=== PATIENT | male | born 1990 | race Hispanic/Latino ===

== ENCOUNTER 2016-08-26 18:36 | Emergency (ER) | payer SELFPAY ==
--- NOTE | 2016-08-26 21:18 | Emergency Department Report ---
- General Chief complaint: Skin Rash Stated complaint: POISON GENTRY/ALLERGIC REACTION Time Seen by Provider: 08/26/16 21:12 Source: patient Mode of arrival: Ambulatory Limitations: No Limitations - History of Present Illness Initial comments: 25-year-old male past medical history none presents with complaint of itchy rash to arms or legs and flank. Patient states that he was gardening with a friend 4 days ago and was exposed to poison gentry, developed inflammatory lesions on arms and legs and left flank. Patient was treated at a hospital in [facility]. Patient is currently traveling to meet family members but is currently undomiciled. Is awake alert and oriented 3. States that he has not been able to fill prescriptions for hydroxyzine and prednisone. Has been taking Benadryl with minimal relief of itching. Patient also states that he is currently taking Bactrim and Keflex for small area of cellulitis due to excoriated skin. Patient states his tetanus is up-to-date is awake alert and oriented 3 no signs or reports of respiratory distress. MD complaint: rash, lesion Onset/Timin -: days(s) Tetanus Up to Date: yes Location: LUE, RUE, LLE, RLE Severity: moderate Severity scale (0 -10): 6 Quality: other (itching) Consistency: constant Worsens with: none Context: recent illness (poison gentry allergic reaction on skin and small area of cellulitis) Associated symptoms: denies other symptoms Treatments Prior to Arrival: Benadryl - Related Data Home Medications Medication Instructions Recorded Confirmed Last Taken Prednisone 60 mg PO DAILY 08/26/16 08/26/16 Unknown hydrOXYZINE PAMOATE 25 mg PO QID 08/26/16 08/26/16 Unknown Previous Rx's Medication Instructions Recorded Last Taken Type Pramoxine HCl/Calamine [Calamine 177 ml TP QDAY #1 lotion 08/26/16 Unknown Rx Medicated Lotion] Allergies Allergy/AdvReac Type Severity Reaction Status Date / Time poison gentry extract Allergy Rash Verified 08/26/16 19:27 Abscess Boil HPI - HPI Chief Complaint: Skin Rash Stated Complaint: POISON GENTRY/ALLERGIC REACTION Time Seen by Provider: 08/26/16 21:12 Home Medications: Home Medications Medication Instructions Recorded Confirmed Last Taken Prednisone 60 mg PO DAILY 08/26/16 08/26/16 Unknown hydrOXYZINE PAMOATE 25 mg PO QID 08/26/16 08/26/16 Unknown Previous Rx's Medication Instructions Recorded Last Taken Type Pramoxine HCl/Calamine [Calamine 177 ml TP QDAY #1 lotion 08/26/16 Unknown Rx Medicated Lotion] Allergies/Adverse Reactions: Allergies Allergy/AdvReac Type Severity Reaction Status Date / Time poison gentry extract Allergy Rash Verified 08/26/16 19:27 ED Review of Systems ROS: Stated complaint: POISON GENTRY/ALLERGIC REACTION Other details as noted in HPI Constitutional: denies: chills, fever Eyes: denies: eye pain, eye discharge, vision change ENT: denies: ear pain, throat pain Respiratory: denies: cough, shortness of breath, wheezing Cardiovascular: denies: chest pain, palpitations Endocrine: no symptoms reported Gastrointestinal: denies: abdominal pain, nausea, diarrhea Genitourinary: denies: urgency, dysuria Musculoskeletal: denies: back pain, joint swelling, arthralgia Skin: as per HPI, rash, lesions (multiple excoriations) Neurological: denies: headache, weakness, paresthesias Psychiatric: denies: anxiety, depression Hematological/Lymphatic: denies: easy bleeding, easy bruising ED Past Medical Hx - Past Medical History Previous Medical History?: No - Surgical History Past Surgical History?: No - Social History Smoking Status: Current Every Day Smoker Substance Use Type: None - Medications Home Medications: Home Medications Medication Instructions Recorded Confirmed Last Taken Type Pramoxine HCl/Calamine [Calamine 177 ml TP QDAY #1 lotion 08/26/16 Unknown Rx Medicated Lotion] Prednisone 60 mg PO DAILY 08/26/16 08/26/16 Unknown History hydrOXYZINE PAMOATE 25 mg PO QID 08/26/16 08/26/16 Unknown History ED Physical Exam - General Limitations: No Limitations General appearance: alert, in no apparent distress - Head Head exam: Present: atraumatic, normocephalic - Eye Eye exam: Present: normal appearance, PERRL, EOMI - ENT ENT exam: Present: mucous membranes moist - Neck Neck exam: Present: normal inspection - Respiratory Respiratory exam: Present: normal lung sounds bilaterally. Absent: respiratory distress - Cardiovascular Cardiovascular Exam: Present: regular rate, normal rhythm. Absent: systolic murmur, diastolic murmur, rubs, gallop - GI/Abdominal GI/Abdominal exam: Present: soft, normal bowel sounds - Rectal Rectal exam: Present: deferred - Extremities Exam Extremities exam: Present: normal inspection - Back Exam Back exam: Present: normal inspection, full ROM - Neurological Exam Neurological exam: Present: alert, oriented X3, CN II-XII intact, normal gait - Psychiatric Psychiatric exam: Present: normal affect, normal mood - Skin Skin exam: Present: warm, dry, intact, normal color, rash (rash associated with poison gentry exposure), urticaria (hives-liek lesions on arms and legs), other ( multiples excoriations of arms and legs) ED Course Vital Signs 08/26/16 19:18 Temperature 97.6 F Pulse Rate 84 Respiratory 16 Rate Blood Pressure 116/59 Blood Pressure 116/59 [Left] O2 Sat by Pulse 100 Oximetry ED Medical Decision Making - Medical Decision Making A/P: Allergic reaction skin, poison gentry exposure 1-patient given dose of IV Benadryl and Solu-Medrol, Pepcid and some IV fluids while in ED. Patient experienced significant relief of itching sensation 2-patient has scripts for short course prednisone and hydroxyzine. Patient states he does not currently have money to buy medicines I provided patient with several discount cards and patient is making arrangement with family members to buy medicines tomorrow. 3-I recommend the patient use calamine lotion to allergic lesions where he was exposed to poison gentry 4-patient given primary care referral 5- no clinical signs of angioedema or anaphylaxis at this time 6-patient already on course of Bactrim and Keflex for small cellulitic patch underneath the left axilla. Patient states it has been getting better. Denies any fever or chills. Critical care attestation.: If time is entered above; I have spent that time in minutes in the direct care of this critically ill patient, excluding procedure time. ED Disposition Clinical Impression: Poison gentry dermatitis Disposition: DC-01 TO HOME OR SELFCARE Is pt being admited?: No Does the pt Need Aspirin: No Condition: Stable Instructions: Poison Gentry (ED), Contact Dermatitis (ED) Prescriptions: Pramoxine HCl/Calamine [Calamine Medicated Lotion] 177 ml TP QDAY #1 lotion Referrals: PRIMARY CARE, [Primary Care Provider] - 3-5 Days [facility] [Provider Group] - 3-5 Days [facility] [Outside] - 3-5 Days Time of Disposition: 23:00
[2016-08-26] MEDS ORDERED: ATARAX PO ONE (21:19)
[2016-08-26] MEDS ORDERED: PEPCID IV ONE (21:19)
[2016-08-26] MEDS ORDERED: BENADRYL IV ONE (21:19)
[2016-08-26] MEDS ORDERED: NACL 0.9% 1000 ML 1,000 ML IV ONE (21:19)
[2016-08-27 05:05] VITALS: BP 100/59
== END 2016-08-27 05:05 | disposition home or self-care (01) ==
LOC: ED 18:36
DX: L23.7 Allergic contact dermatitis due to plants, except food (principal); F17.200 Nicotine dependence, unspecified, uncomplicated; Z91.048 Other nonmedicinal substance allergy status
CPT/HCPCS: 96361; 96374; 96375; 99283; J1200; J2930; J7030